=== PATIENT | female | born 1990 | race Caucasian/White ===

== ENCOUNTER 2017-08-15 21:20 | Emergency (ER) | payer OTHER ==
[~2017-08-15] VITALS: Ht 170.2 cm; Wt 154.5 kg
[~2017-08-15 21:20] MED LIST: FAMO20 PO
[2017-08-15 21:43] LABS: GLUCOSE,POINT OF CARE 312 MG/DL (70-110)
[2017-08-15 22:59] LABS: INFLUENZA TYPE A NEGATIVE FOR TYPE A (NEGATIVE); INFLUENZA TYPE B NEGATIVE FOR TYPE B (NEGATIVE)
[2017-08-16 01:15] VITALS: BP 135/88
[2017-08-16] MEDS ORDERED: PROMETHAZINE HCL/CODEINE 6.25-10MG/5ML SYRUP UDCUP PO ONE (01:30)
== END 2017-08-16 01:39 | disposition home or self-care (01) ==
LOC: EMS 21:21
DX: J06.9 Acute upper respiratory infection, unspecified (principal); R73.03 Prediabetes
CPT/HCPCS: 81025; 82962; 87804; 99284

== ENCOUNTER 2017-08-25 18:51 | Emergency (ER) | payer OTHER ==
[~2017-08-25] VITALS: Ht 170.2 cm; Wt 155.0 kg
[2017-08-25 19:18] LABS: GLUCOSE,POINT OF CARE 265 MG/DL (70-110)
[2017-08-25] MEDS ORDERED: LORazepam 1 MG TABLET PO ONE (19:45)
[2017-08-25] MEDS ORDERED: LevETIRAcetam 500 MG TABLET PO ONE (19:45)
[2017-08-25] MEDS ORDERED: ONDANSETRON HCL 4 MG/2 ML VIAL IVP ONE (19:45)
[2017-08-25 19:55] LABS: BASOPHILS % (AUTO) 0.3 % (0.0-2.0); EOSINOPHILS % (AUTO) 0.7 % (1.0-6.0); HEMATOCRIT 39.3 % (36-46); LYMPHOCYTES # (AUTO) 1.2 K/uL (1.0-4.8); LYMPHOCYTES % (AUTO) 13.3 % (22.0-44.0); MEAN CORPUSCULAR HEMOGLOBIN 26.5 pg (26.0-34.0); MEAN CORPUSCULAR HGB CONC 33.1 G/dL (31.0-37.0); MEAN CORPUSCULAR VOLUME 80 fL (80-100); MONOCYTES # (AUTO) 0.3 K/uL (0.1-1.0); MONOCYTES % (AUTO) 3.4 % (2.0-9.0); NEUTROPHILS # (AUTO) 7.7 K/uL (1.8-7.7); NEUTROPHILS % (AUTO) 82.3 % (40.0-70.0); PLATELET COUNT (AUTO) 186 K/uL (150-450); RED BLOOD CELL COUNT(AUTO) 4.91 MIL/uL (4.00-5.20); RED CELL DISTRIBUTION WIDTH 14.2 % (11.5-14.5)
[2017-08-25 19:59] LABS: APPEARANCE,URINE CLOUDY (CLEAR); BILIRUBIN,URINE NEGATIVE (NEGATIVE); GLUCOSE, URINE (UA) 100 mg/dL (NEGATIVE); KETONES,URINE NEGATIVE (NEGATIVE); LEUKOCYTE ESTERASE ,URINE NEGATIVE (NEGATIVE); NITRATE,URINE NEGATIVE (NEGATIVE); OCCULT BLOOD,URINE NEGATIVE (NEGATIVE); PH,URINE 8.5 (5.0-8.0); PROTEIN,URINE POS 1+ (NEGATIVE)
[2017-08-25 20:11] LABS: ANION GAP 7 mmol/L (8-16); CALCIUM, TOTAL 8.3 mg/dL (8.8-10.5); CARBON DIOXIDE 28 mmol/L (22-29); CHLORIDE 96 mmol/L (98-107); CREATININE 0.83 mg/dL (0.60-1.30); GLOMERULAR FILTR. RATE CALC > 60 mL/min (>60); GLUCOSE,RANDOM 250 mg/dL (70-110); POTASSIUM 3.7 mmol/L (3.5-5.1); SODIUM SERUM 131 mmol/L (136-145); UREA NITROGEN, BLOOD 7 mg/dL (7-18)
[2017-08-25] MEDS ORDERED: ACETAMINOPHEN 500 MG TABLET PO ONE (20:15)
[2017-08-25 20:17] LABS: ALANINE AMINOTRANSFERASE 226 U/L (12-78); ALBUMIN 3.2 g/dL (3.4-5.0); ALKALINE PHOSPHATASE 113 U/L (46-116); ASPARTATE AMINOTRANSFERASE 202 U/L (15-37); BILIRUBIN,TOTAL 0.6 mg/dL (0.1-1.0); LIPASE 146 U/L (73-393); TOTAL PROTEIN, SERUM 8.3 g/dL (6.4-8.2)
[2017-08-25 20:19] LABS: RBC,URINE 0-2 /HPF (0-2)
[2017-08-25 20:20] LABS: BACTERIA,URINE None Seen /HPF (None Seen); SQUAMOUS EPITHELIAL CELL,UR Few /LPF (None Seen); WBC,URINE 0-2 /HPF (0-5)
[2017-08-25 22:12] LABS: INFLUENZA TYPE A NEGATIVE FOR TYPE A (NEGATIVE); INFLUENZA TYPE B NEGATIVE FOR TYPE B (NEGATIVE)
[2017-08-25 22:44] VITALS: BP 142/87
== END 2017-08-25 22:47 | disposition home or self-care (01) ==
LOC: EMS 18:53
DX: J11.1 Influenza due to unidentified influenza virus with other respiratory manifestations (principal)
CPT/HCPCS: 36415; 76700; 80053; 81001; 82962; 83690; 84703; 85025; 87804; 96374; 99285; J2405

== ENCOUNTER 2017-10-16 19:03 | Emergency (ER) | payer OTHER ==
[~2017-10-16] VITALS: Ht 170.2 cm; Wt 154.6 kg
[2017-10-16] MEDS ORDERED: METF500T4 PO (19:12)
[2017-10-16 19:17] LABS: GLUCOSE,POINT OF CARE 253 MG/DL (70-110)
[2017-10-16] MEDS ORDERED: SODIUM CHLORIDE 0.9% 1,000 ML IV ONE (20:00)
[2017-10-16] MEDS: ACYCLOVIR 200 MG CAPSULE PO ONE (20:43)
[2017-10-16] MEDS: IBUPROFEN 800 MG TABLET PO ONE (20:43)
[2017-10-16] MEDS: ACETAMINOPHEN/CODEINE 300-30 MG TABLET PO ONE (21:14)
[2017-10-16 21:21] VITALS: BP 145/97
== END 2017-10-16 21:53 | disposition home or self-care (01) ==
LOC: EMS 19:04
DX: B02.9 Zoster without complications (principal); L98.9 Disorder of the skin and subcutaneous tissue, unspecified; N63.20 Unspecified lump in the left breast, unspecified quadrant; E11.9 Type 2 diabetes mellitus without complications
CPT/HCPCS: 82962; 99284

== ENCOUNTER 2020-02-23 18:01 | Emergency (ER) | payer OTHER ==
[~2020-02-23] VITALS: Ht 170.2 cm; Wt 145.4 kg
[~2020-02-23 18:01] MED LIST changes: -FAMO20 PO; +METF-960 PO
[2020-02-23] MEDS ORDERED: PERTUSS(ACELL),DIPH,TET VAC/PF 0.5 ML VIAL IM ONE (19:00)
[2020-02-23] MEDS ORDERED: SILVER NITRATE APPLICATOR 1 EA STICK TP ONE (19:00)
[2020-02-23 19:13] VITALS: BP 102/56
== END 2020-02-23 19:46 | disposition home or self-care (01) ==
LOC: EMS 18:03
DX: S61.214A Laceration without foreign body of right ring finger without damage to nail, initial encounter (principal); E11.9 Type 2 diabetes mellitus without complications; W26.0XXA Contact with knife, initial encounter; Y93.89 Activity, other specified; Y92.89 Other specified places as the place of occurrence of the external cause; Y99.8 Other external cause status
CPT/HCPCS: 90471; 90715